=== PATIENT | female | born 1995 | race Two or more races ===

== ENCOUNTER 2024-08-13 11:46 | Emergency (ER) | payer OTHER ==
[2024-08-13 12:05] VITALS: BP 122/79; PULSE 116; RESP 20; TEMP 98; BMI 24.9
[2024-08-13 13:33] LABS: ABSOLUTE IMMATURE GRANULOCYTES 0.03 x10^3/uL (0.0-0.031); BASOPHILS # 0.01 x10^3/uL (0.01-0.08); HEMATOCRIT 31.3 % (34.1-44.9); MCHC 31.9 g/dl (32.2-35.5); MEAN CELL VOLUME 64.1 fl (79.4-94.8); MONOCYTE # 1.11 x10^3/uL (0.24-0.86); MONOCYTE % 12.7 % (4.7-12.5); PLATELET COUNT 232 x10^3/uL (182-369); RDW 21.7 % (12.1-16.5)
[2024-08-13] MEDS ORDERED: ONDANSETRON 4 MG/2 ML VIAL ONE (13:33)
[2024-08-13] MEDS ORDERED: ACETAMINOPHEN INJECTION 100 ML ONE (13:35)
[2024-08-13] MEDS: SODIUM CHLORIDE 0.9% 500 ML INFUS.BAG IV ONE (13:40)
[2024-08-13] MEDS: ACETAMINOPHEN 1000 MG/100 ML BAG IVPB ONE (13:41)
[2024-08-13] MEDS: ONDANSETRON 4 MG/2 ML VIAL IVPUSH ONE (13:42)
[2024-08-13 13:59] LABS: THROAT:GRP A STREP DETECTED (NOTDETECTED)
[2024-08-13 14:21] LABS: ERYTHROCYTE SEDIMENTATION RATE 56 mm/hr (0-20)
[2024-08-13 14:38] LABS: POTASSIUM 3.3 mmol/L (3.5-5.1)
[2024-08-13 14:40] LABS: ALBUMIN 3.5 g/dl (3.4-5.0)
[2024-08-13 14:41] LABS: CALCIUM 8.6 mg/dL (8.5-10.1)
[2024-08-13 14:42] LABS: BLOOD UREA NITROGEN 5.6 mg/dL (7-18)
[2024-08-13 14:44] LABS: CREATININE 0.7 mg/dL (0.55-1.3)
[2024-08-13 14:46] LABS: BILIRUBIN,TOTAL 0.4 mg/dL (0.2-1); TOT PROT 8.5 g/dl (6.4-8.2)
[2024-08-13] MEDS ORDERED: DEXAMETHASONE SOD PHOSPHATE 10 MG/1 ML VIAL ONE (15:04)
[2024-08-13] MEDS: DEXAMETHASONE SOD PHOSPHATE 10 MG/1 ML VIAL IVPUSH ONE (15:13)
[2024-08-13] MEDS ORDERED: PENICILLIN G BENZATHINE 1,200,000 UNIT/2 ML PFS IM ONE ×2 (15:15→15:23)
[2024-08-13] MEDS: PENICILLIN G BENZATHINE 1,200,000 UNIT/2 ML PFS IM ONE (15:23)
== END 2024-08-13 16:43 | disposition home or self-care (01) ==
LOC: MERGE 11:46 → JER 11:46
PROC: 3E033NZ Introduction of Analgesics, Hypnotics, Sedatives into Peripheral Vein, Percutaneous Approach (ICD-10-PCS; principal; 2024-08-13)
PROC: 3E033GC Introduction of Other Therapeutic Substance into Peripheral Vein, Percutaneous Approach (ICD-10-PCS; 2024-08-13)
PROC: 3E033GC Introduction of Other Therapeutic Substance into Peripheral Vein, Percutaneous Approach (ICD-10-PCS; 2024-08-13)
PROC: 3E033GC Introduction of Other Therapeutic Substance into Peripheral Vein, Percutaneous Approach (ICD-10-PCS; 2024-08-13)
PROC: 3E02329 Introduction of Other Anti-infective into Muscle, Percutaneous Approach (ICD-10-PCS; 2024-08-13)
DX: J03.00 Acute streptococcal tonsillitis, unspecified (principal); R50.9 Fever, unspecified; R13.10 Dysphagia, unspecified; R06.02 Shortness of breath; R42 Dizziness and giddiness; R51.9 Headache, unspecified; R00.0 Tachycardia, unspecified; R59.0 Localized enlarged lymph nodes; R07.89 Other chest pain
CPT/HCPCS: 0241U-QW; 36415; 71046-TC-FY; 80053; 85025; 85651; 86308; 87651; 93005; 93010; 99285-25; J0131; J1100

== ENCOUNTER 2024-08-29 16:40 | Day surgery (SDC) | payer OTHER ==
[2024-08-29 16:59] VITALS: RESP 18; TEMP 98.6
[2024-08-29] MEDS: FERRIC CARBOXYMALTOSE 750 MG in SODIUM CHLORIDE 250 ML IVPB ONE (17:23)
[2024-08-29 18:06] VITALS: BP 100/65; PULSE 95
== END 2024-08-29 18:15 | disposition home or self-care (01) ==
LOC: JONCNONCHE 16:40 → J7W 16:40 → JONCNONCHE 18:15
PROVIDERS: ATTEND Nurse Practitioner Family
PROC: 3E033GC Introduction of Other Therapeutic Substance into Peripheral Vein, Percutaneous Approach (ICD-10-PCS; principal; 2024-08-29)
DX: E61.1 Iron deficiency (principal)
CPT/HCPCS: 96365; J1439